=== PATIENT | female | born 1985 | race Caucasian/White ===

== ENCOUNTER 2017-05-16 10:29 | Inpatient (IN) | payer BC ==
[~2017-05-16] VITALS: Ht 162.6 cm; Wt 118.1 kg
[2017-05-16] VITALS (43 sets, daily range): BP systolic 125–209; BP diastolic 67–106
[~2017-05-16 10:29] MED LIST: NATALCARE RX1 TABLET PO
[2017-05-16 11:47] LABS: BASOPHIL (%) 0.4 % (0-1); EOSINOPHIL (%) 0.5 % (0-5); EOSINOPHIL COUNT 0.1 K/uL (0-0.3); HEMATOCRIT 33.6 % (36.0-46.0); HEMOGLOBIN 10.6 G/DL (11.9-15.5); IMMATURE GRANULOCYTE (%) 2.8 % (0.0-0.7); LYMPHOCYTE (%) 19.4 % (15-42); LYMPHOCYTE COUNT 2.1 K/uL (1.0-2.8); MCH 26.7 PG (29.0-34.0); MCHC 31.5 G/DL (30.0-36.0); MCV 84.6 FL (83-99); MONOCYTE (%) 7.9 % (3-12); MONOCYTE COUNT 0.9 K/uL (0-0.8); NEUTROPHIL COUNT 7.6 K/uL (1.8-6.4); PLATELET COUNT 400 K/uL (156-360); RBC DIS.WIDTH-CV 15.7 % (11.8-14.6); RBC DIS.WIDTH-SD 47.8 % (39-53); RED BLOOD COUNT 3.97 M/uL (3.80-5.20)
[2017-05-16 12:23] LABS: ALBUMIN 2.8 G/DL (3.2-4.8); CHLORIDE 107 MEQ/L (99-109); POTASSIUM 4.1 MEQ/L (3.7-5.4); SODIUM 138 MEQ/L (136-147); TOTAL BILIRUBIN 0.3 MG/DL (0.0-1.0)
[2017-05-16 12:28] LABS: ALKALINE PHOSPHATASE 124 IU/L (3-129); ALT (GPT) 14 IU/L (3-49); AST (GOT) 16 IU/L (2-34); CREATININE 0.6 MG/DL (0.6-1.3); GFR ESTIMATE (CALCULATED) > 59 mL/min/; GLUCOSE 77 mg/dL (70-99); LACTATE DEHYDROGENASE 159 IU/L (20-246); UREA NITROGEN (BUN) 11 mg/dL (9-23); URIC ACID 6.5 mg/dL (3.1-9.2)
[2017-05-16 12:59] LABS: UR CREATININE CONCENTRATION 174.3 MG/DL
[2017-05-16] MEDS ORDERED: ASPIR 8181 M1 PO (21:51)
[2017-05-17] VITALS (29 sets, daily range): BP systolic 121–182; BP diastolic 63–87
[2017-05-17 11:55] LABS: BASOPHIL (%) 0.2 % (0-1); EOSINOPHIL (%) 0.3 % (0-5); HEMATOCRIT 26.7 % (36.0-46.0); IMMATURE GRANULOCYTE (%) 1.1 % (0.0-0.7); LYMPHOCYTE (%) 19.6 % (15-42); LYMPHOCYTE COUNT 2.4 K/uL (1.0-2.8); MCH 26.5 PG (29.0-34.0); MCHC 30.7 G/DL (30.0-36.0); MCV 86.4 FL (83-99); MONOCYTE (%) 7.5 % (3-12); MONOCYTE COUNT 0.9 K/uL (0-0.8); NEUTROPHIL (%) 71.3 % (45-76); NEUTROPHIL COUNT 8.9 K/uL (1.8-6.4); PLATELET COUNT 329 K/uL (156-360); RBC DIS.WIDTH-CV 16.2 % (11.8-14.6); WHITE BLOOD COUNT 12.5 K/uL (4.1-10.2)
[2017-05-17 11:56] LABS: HEMOGLOBIN 8.2 G/DL (11.9-15.5); RED BLOOD COUNT 3.09 M/uL (3.80-5.20)
[2017-05-18] VITALS (7 sets, daily range): BP systolic 138–198; BP diastolic 66–88
[2017-05-18] MEDS ORDERED: CHROMAGEN,1 CAPSULE PO (13:17)
[2017-05-18] MEDS ORDERED: LABETALOL HCL200 MG PO (13:17)
[2017-05-18 20:53] LABS: BASOPHIL (%) 0.3 % (0-1); EOSINOPHIL (%) 1.3 % (0-5); EOSINOPHIL COUNT 0.1 K/uL (0-0.3); HEMATOCRIT 26.4 % (36.0-46.0); HEMOGLOBIN 8.2 G/DL (11.9-15.5); IMMATURE GRANULOCYTE (%) 3.3 % (0.0-0.7); LYMPHOCYTE (%) 17.1 % (15-42); LYMPHOCYTE COUNT 1.9 K/uL (1.0-2.8); MCH 27.2 PG (29.0-34.0); MCHC 31.1 G/DL (30.0-36.0); MCV 87.4 FL (83-99); MONOCYTE (%) 6.1 % (3-12); MONOCYTE COUNT 0.7 K/uL (0-0.8); NEUTROPHIL (%) 71.9 % (45-76); NEUTROPHIL COUNT 7.8 K/uL (1.8-6.4); NRBC (%) 0.3 /100 WBC (0-0); PLATELET COUNT 334 K/uL (156-360); RBC DIS.WIDTH-CV 16.1 % (11.8-14.6); RBC DIS.WIDTH-SD 51.3 % (39-53); RED BLOOD COUNT 3.02 M/uL (3.80-5.20); WHITE BLOOD COUNT 10.9 K/uL (4.1-10.2)
[2017-05-18 21:28] LABS: ALBUMIN 2.7 G/DL (3.2-4.8); ALT (GPT) 14 IU/L (3-49); CHLORIDE 107 MEQ/L (99-109); CREATININE 0.7 MG/DL (0.6-1.3); GFR ESTIMATE (CALCULATED) > 59 mL/min/; POTASSIUM 4.2 MEQ/L (3.7-5.4); SODIUM 139 MEQ/L (136-147); TOTAL PROTEIN 5.5 G/DL (6.4-8.3); UREA NITROGEN (BUN) 12 mg/dL (9-23)
[2017-05-18 21:29] LABS: AST (GOT) 14 IU/L (2-34)
[2017-05-18 21:30] LABS: ALKALINE PHOSPHATASE 91 IU/L (3-129); GLUCOSE 109 mg/dL (70-99); TOTAL BILIRUBIN 0.2 MG/DL (0.0-1.0)
[2017-05-19 03:12] VITALS: BP 154/73
[2017-05-19 08:38] VITALS: BP 169/78
[2017-05-19] MEDS ORDERED: LABETALOL HCL200 MG PO (11:33)
[2017-05-19 12:00] VITALS: BP 140/70
== END 2017-05-19 16:18 | disposition home or self-care (01) | DRG 775 ==
LOC: LDRP-OP 10:29 → 2WEST 10:30 → LDRP-OP 06-18 14:15
PROVIDERS: Advanced Practice Midwife; Obstetrics & Gynecology
DX: O70.1 Second degree perineal laceration during delivery (principal); O14.14 Severe pre-eclampsia complicating childbirth; O99.02 Anemia complicating childbirth; D62 Acute posthemorrhagic anemia; O99.824 Streptococcus B carrier state complicating childbirth; O99.52 Diseases of the respiratory system complicating childbirth; J32.9 Chronic sinusitis, unspecified; O99.214 Obesity complicating childbirth; E66.9 Obesity, unspecified; Z68.38 Body mass index [BMI] 38.0-38.9, adult; Z3A.39 39 weeks gestation of pregnancy; Z37.0 Single live birth
CPT/HCPCS: 80053; 82570; 83615; 84156; 84550; 85025; C1755; J0360; J2540; J3010; J3475; J7120

== ENCOUNTER → 2017-07-26 | Outpatient (CLI) | payer BC ==
[~2017-07-26] MED LIST changes: +ASPIR 8181 M1 PO; +CHROMAGEN,1 CAPSULE PO; +LABETALOL HCL200 MG PO
== END | disposition home or self-care (01) ==
LOC: LAC 11:54
DX: Z39.1 Encounter for care and examination of lactating mother (principal); O92.03 Retracted nipple associated with lactation
CPT/HCPCS: G0463

== ENCOUNTER → 2017-09-15 | Outpatient (CLI) | payer BC | END | disposition home or self-care (01) | LOC: LAC 15:13 | DX: Z39.1 Encounter for care and examination of lactating mother (principal); O92.79 Other disorders of lactation | CPT/HCPCS: G0463 ==